=== PATIENT | female | born 1970 | race Hispanic/Latino ===

== ENCOUNTER 2017-10-01 02:34 | Observation (INO) | payer OTHER ==
[~2017-10-01] VITALS: Ht 157.5 cm; Wt 69.9 kg
[2017-10-01] MEDS ORDERED: ONDANSETRON HCL 4 MG/2 ML VIAL ONE (02:56)
[2017-10-01] MEDS ORDERED: FAMOTIDINE/PF 20 MG/2 ML VIAL IV ONE (02:57)
[2017-10-01 03:01] LABS: BASOPHILS % (AUTO) 0.4 % (0.0-5.0); EOSINOPHILS % (AUTO) 1.9 % (0.0-8.0); HEMATOCRIT 37.7 % (36-48); LYMPHOCYTES % (AUTO) 26.3 % (21.0-51.0); MEAN CORPUSCULAR HEMOGLOBIN 30.2 pg (27.0-33.0); MEAN CORPUSCULAR VOLUME 88.8 fL (79-99); MONOCYTES % (AUTO) 7.5 % (3.0-13.0); NEUTROPHILS % (AUTO) 63.9 % (40.0-77.0); NUCLEATED RED BLOOD CELLS 0.1 % (0.0-0.19); PLATELET COUNT (AUTO) 218 K/uL (130-400); RED BLOOD CELL COUNT(AUTO) 4.25 MIL/uL (4.00-5.50); RED CELL DISTRIBUTION WIDTH 14.7 % (11.0-15.5); WHITE BLOOD COUNT (AUTO) 9.5 K/uL (4.8-10.8)
[2017-10-01 03:14] LABS: CARBON DIOXIDE 32 mmol/L (21-32); CHLORIDE 104 mmol/L (101-111); CREATININE 0.8 mg/dL (0.5-1.5); GLOMERULAR FILTR. RATE CALC 81 mL/min (>60); GLUCOSE,RANDOM 118 mg/dL (70-105); POTASSIUM 3.4 mmol/L (3.5-5.1); SODIUM SERUM 142 mmol/L (136-145); UREA NITROGEN, BLOOD 11 mg/dL (7-18)
[2017-10-01 03:27] LABS: ALANINE AMINOTRANSFERASE 15 U/L (12-78); ALBUMIN 3.4 g/dL (3.5-5.0); ASPARTATE AMINOTRANSFERASE 13 U/L (10-37); BILIRUBIN,TOTAL 0.3 mg/dL (0.2-1.0); CREATINE KINASE MB < 0.5 ng/mL (0.5-3.6); CREATINE KINASE, TOTAL 30 U/L (21-232); LIPASE 94 U/L (114-286); TOTAL PROTEIN, SERUM 7.1 g/dL (6.0-8.3)
[2017-10-01] MEDS ORDERED: ASPIRIN 81MG TAB.CHEW ONE (04:59)
[2017-10-01] MEDS ORDERED: NITROGLYCERIN 1GM/1 INCH PACKET TD ONE (05:00)
[2017-10-01 06:30] VITALS: BP 150/76
[2017-10-01] MEDS ORDERED: NITROGLYCERIN 0.4 MG SL TAB SL PRN (06:30)
[2017-10-01] MEDS ORDERED: POTASSIUM CHLORIDE 20 MEQ ERTAB PO PRN (06:30)
[2017-10-01] MEDS ORDERED: POTASSIUM CHLORIDE 10% ELIXIR 20 MEQ/15 ML UDCUP PO PRN (06:30)
[2017-10-01] MEDS ORDERED: POTASSIUM CHLORIDE 20MEQ/100ML 100 ML IV PRN (06:30)
[2017-10-01] MEDS ORDERED: ACETAMINOPHEN 325 MG TAB PO PRN ×2 (06:30)
[2017-10-01] MEDS: NITROGLYCERIN 1GM/1 INCH PACKET TD SCH ×3 (06:30→23:16)
[2017-10-01] MEDS ORDERED: LACTULOSE 20 GM/30 ML UDCUP PO PRN (06:30)
[2017-10-01] MEDS ORDERED: ONDANSETRON HCL 4 MG/2 ML VIAL IV PRN (06:30)
[2017-10-01] MEDS ORDERED: LIDOCAINE HCL-MPF 1% 2ML VIAL IVP PRN (06:30)
[2017-10-01] MEDS ORDERED: HYDRALAZINE HCL 20 MG/ML VIAL IV PRN (06:30)
[2017-10-01] MEDS: INSULIN HUMULIN R 100 UNIT/ML 3ML SQ SCH ×4 (07:30→21:00)
[2017-10-01 07:47] VITALS: BP 128/72
[2017-10-01] MEDS: ASPIRIN 325 MG TABLET PO SCH (08:21)
[2017-10-01] MEDS: PANTOPRAZOLE SODIUM 40 MG TABLET.DR PO SCH (08:23)
[2017-10-01] MEDS: METOPROLOL TARTRATE 25 MG TAB PO SCH ×2 (08:23→20:22)
[2017-10-01] MEDS: ENOXAPARIN SODIUM 40 MG/0.4 ML SYRINGE SQ SCH (08:25)
[2017-10-01 09:31] LABS: CREATINE KINASE MB < 0.5 ng/mL (0.5-3.6); CREATINE KINASE, TOTAL 32 U/L (21-232); MYOGLOBIN 25 ng/mL (10-92); TROPONIN I 0.14 ng/mL (0.00-0.06)
[2017-10-01] MEDS ORDERED: METF500T6 PO (09:46)
[2017-10-01 11:11] VITALS: BP 131/75
[2017-10-01 15:25] LABS: CREATINE KINASE MB < 0.5 ng/mL (0.5-3.6); CREATINE KINASE, TOTAL 28 U/L (21-232); MYOGLOBIN 21 ng/mL (10-92); TROPONIN I 0.09 ng/mL (0.00-0.06)
[2017-10-01 16:06] VITALS: BP 117/55
[2017-10-01] MEDS: METFORMIN HCL 500 MG TABLET PO SCH (17:00)
[2017-10-01 19:35] VITALS: BP 124/76
[2017-10-01 23:58] VITALS: BP 125/77
[2017-10-02 04:40] VITALS: BP 126/64
[2017-10-02] MEDS: INSULIN HUMULIN R 100 UNIT/ML 3ML SQ SCH ×2 (06:00→11:30)
[2017-10-02 07:46] VITALS: BP 117/60
[2017-10-02 11:37] VITALS: BP 114/69
[2017-10-02] MEDS: NITROGLYCERIN 1GM/1 INCH PACKET TD SCH (14:04)
[2017-10-02] MEDS ORDERED: ASPI-1012 PO (14:11)
[2017-10-02] MEDS ORDERED: NITR0.4T50 SL (14:13)
[2017-10-02] MEDS ORDERED: METO25TA6 PO (14:13)
[2017-10-02] MEDS: METOPROLOL TARTRATE 25 MG TAB PO SCH (14:52)
[2017-10-02] MEDS: PANTOPRAZOLE SODIUM 40 MG TABLET.DR PO SCH (14:52)
[2017-10-02] MEDS: ASPIRIN 325 MG TABLET PO SCH (14:52)
[2017-10-02] MEDS: METFORMIN HCL 500 MG TABLET PO SCH (14:52)
[2017-10-02] MEDS: ENOXAPARIN SODIUM 40 MG/0.4 ML SYRINGE SQ SCH (14:53)
== END 2017-10-02 16:15 | disposition home or self-care (01) ==
LOC: EDH 02:34 → EDHIP 02:35 → 2AH 06:19
PROVIDERS: ADMIT Family Medicine; ATTEND Family Medicine
DX: R07.89 Other chest pain (principal); E11.9 Type 2 diabetes mellitus without complications; E87.6 Hypokalemia; Z79.82 Long term (current) use of aspirin
CPT/HCPCS: 36415; 71046; 76705; 80053; 82550 ×3; 82553 ×3; 82948 ×6; 83690; 83874 ×2; 84484 ×4; 85025; 85378; 93005 ×4; 96372; 99285; G0378 ×38; J1650; J2405; J3490

== ENCOUNTER → 2017-10-03 | Outpatient (CLI) | payer OTHER ==
[~2017-10-03] MED LIST: ASPI-1012 PO; METF500T6 PO; METO25TA6 PO; NITR0.4T50 SL
== END ==
LOC: OIH 13:35
PROVIDERS: ATTEND Internal Medicine Cardiovascular Disease
DX: Z13.6 Encounter for screening for cardiovascular disorders (principal)
CPT/HCPCS: 75571

== ENCOUNTER 2024-03-01 18:20 | Inpatient (IN) | payer BC, OTHER ==
[~2024-03-01] VITALS: Ht 157.5 cm; Wt 85.3 kg
[~2024-03-01 18:20] MED LIST changes: +METF-444 PO; -METF500T6 PO
[2024-03-01 18:46] LABS: BASOPHILS # (AUTO) 0.04 K/uL (0.00-0.20); BASOPHILS % (AUTO) 0.4 % (0.0-5.0); EOSINOPHILS # (AUTO) 0.15 K/uL (0.00-0.70); EOSINOPHILS % (AUTO) 1.5 % (0.0-8.0); HEMATOCRIT 40.5 % (36-48); IMMATURE GRANULOCYTE ABSOLUTE 0.03 K/uL (0-1); LYMPHOCYTES # (AUTO) 3.1 K/uL (1.0-4.8); LYMPHOCYTES % (AUTO) 30.3 % (21.0-51.0); MEAN CORPUSCULAR HEMOGLOBIN 30.6 pg (27.0-33.0); MEAN CORPUSCULAR HGB CONC 33.6 g/dL (32.0-36.0); MONOCYTES # (AUTO) 0.6 K/uL (0.1-1.0); MONOCYTES % (AUTO) 6.2 % (3.0-13.0); NEUTROPHILS # (AUTO) 6.3 K/uL (1.8-7.7); NEUTROPHILS % (AUTO) 61.3 % (40.0-77.0); PLATELET COUNT (AUTO) 256 K/uL (130-400); RED BLOOD CELL COUNT(AUTO) 4.45 MIL/uL (4.00-5.50); RED CELL DISTRIBUTION WIDTH 13.8 % (11.0-15.5); WHITE BLOOD COUNT (AUTO) 10.3 K/uL (4.8-10.8)
[2024-03-01 18:48] LABS: APPEARANCE,URINE CLEAR (CLEAR); BILIRUBIN,URINE NEGATIVE (NEGATIVE); COLOR,URINE LIGHT-YELLOW (YELLOW); GLUCOSE, URINE (UA) NEGATIVE (NEGATIVE); KETONES,URINE NEGATIVE (NEGATIVE); LEUKOCYTE ESTERASE ,URINE NEGATIVE Leu/uL (NEGATIVE); NITRATE,URINE NEGATIVE (NEGATIVE); PH,URINE 5.5 (5.0-8.0); PROTEIN,URINE NEGATIVE (NEGATIVE); UROBILINOGEN,URINE 0.2 mg/dL (0.2-1.0)
[2024-03-01 18:49] LABS: ADD UA MICROSCOPIC YES
[2024-03-01 18:50] LABS: MUCUS,URINE RARE LPF (None Seen); SQUAMOUS EPITHELIAL CELL,UR FEW /HPF (0-2); WBC,URINE 0-1 /HPF (0-1)
[2024-03-01 18:58] LABS: POTASSIUM 3.3 mmol/L (3.5-5.1)
[2024-03-01 19:02] LABS: ALBUMIN 3.6 g/dL (3.5-5.0); BILIRUBIN,TOTAL 0.3 mg/dL (0.2-1.0); TOTAL PROTEIN, SERUM 7.5 g/dL (6.0-8.3)
[2024-03-01] MEDS: MAG/ALUM/SIMETH 30 ML UDCUP PO ONE (20:35)
[2024-03-01] MEDS: PANTOPRAZOLE 40 MG/VIAL IVP ONE (20:35)
[2024-03-01] MEDS: LIDOCAINE HCL 2% VISCOUS 15 ML UDCUP PO ONE (20:36)
[2024-03-01] MEDS: ASPIRIN 325MG TAB PO ONE (21:21)
[2024-03-01] MEDS: NITROGLYCERIN 0.4 MG SL TAB SL PRN (22:05)
[2024-03-01] MEDS: HEPARIN 5,000 UNIT VIAL IV PRN (22:57)
[2024-03-01] MEDS: HEPARIN 25,000 UNITS/250ML D5W 250 ML IV SCH (22:58)
[2024-03-01] MEDS ORDERED: DEXTROSE 50%-WATER 50 ML DISP.SYRIN IV PRN (23:00)
[2024-03-01] MEDS ORDERED: MAGNESIUM 2GM PREMIX 50ML 50 ML IV PRN (23:00)
[2024-03-01] MEDS ORDERED: POTASSIUM CHLORIDE 10% ELIXIR 20 MEQ/15 ML UDCUP PO PRN (23:00)
[2024-03-01] MEDS ORDERED: ACETAMINOPHEN 325 MG TAB PO PRN (23:00)
[2024-03-01] MEDS ORDERED: GLUCAGON 1MG KIT 1 MG ML IM PRN (23:00)
[2024-03-01] MEDS ORDERED: KCL 20 MEQ ERTAB PO PRN (23:00)
[2024-03-01] MEDS ORDERED: POTASSIUM CHLORIDE 20MEQ/100ML 100 ML IV PRN ×2 (23:00)
[2024-03-01] MEDS: 0.9%NACL 1000ML 1,000 ML IV SCH (23:24)
[2024-03-01] MEDS: NITROGLYCERIN 1GM OINT 1 INCH/1GM TD SCH (23:25)
[2024-03-01] MEDS ORDERED: HYDRALAZINE 20MG/ML VIAL IV PRN (23:30)
[2024-03-02] VITALS (8 sets, daily range): BP systolic 118–140; BP diastolic 63–78; PULSE 54–83; RESP 16–20; O2SAT 95–96
[2024-03-02] MEDS ORDERED: LISI1TAB51 PO (01:04)
[2024-03-02 05:51] LABS: INR 1.03 (0.85-1.15); PROTHROMBIN TIME 11.1 SEC (9.6-11.6)
[2024-03-02 06:12] LABS: THYROID STIMULATING HORMONE 1.86 uIU/mL (0.36-3.74)
[2024-03-02 06:22] LABS: PARTIAL THROMBOPLASTIN TIME > 139.0 SEC (26.3-35.5)
[2024-03-02 06:34] LABS: HEMOGLOBIN A1C 5.9 % (4.0-6.0)
[2024-03-02] MEDS: MORPHINE 2 MG SYG IV PRN (06:35)
[2024-03-02] MEDS: INSULIN HUMULIN R 100 UNIT/ML 3ML SQ SCH (06:58)
[2024-03-02] MEDS: ASPIRIN 81 MG EC TAB PO SCH (08:31)
[2024-03-02] MEDS: FAMOTIDINE 20MG VIAL IV SCH (08:41)
[2024-03-02] MEDS: ONDANSETRON 4MG INJ IV PRN (10:29)
[2024-03-02 19:21] LABS: INR 1.05 (0.85-1.15); PROTHROMBIN TIME 11.3 SEC (9.6-11.6)
[2024-03-02] MEDS: ATORVASTATIN 20 MG TABLET PO SCH (19:34)
[2024-03-02 19:41] LABS: PARTIAL THROMBOPLASTIN TIME 104.5 SEC (26.3-35.5)
[2024-03-03] VITALS (16 sets, daily range): BP systolic 123–160; BP diastolic 57–80; PULSE 58–75; RESP 17–20; O2SAT 96
[2024-03-03 05:10] LABS: BASOPHILS # (AUTO) 0.03 K/uL (0.00-0.20); BASOPHILS % (AUTO) 0.3 % (0.0-5.0); EOSINOPHILS # (AUTO) 0.05 K/uL (0.00-0.70); EOSINOPHILS % (AUTO) 0.5 % (0.0-8.0); HEMATOCRIT 39.1 % (36-48); IMMATURE GRANULOCYTE ABSOLUTE 0.03 K/uL (0-1); LYMPHOCYTES # (AUTO) 2.6 K/uL (1.0-4.8); LYMPHOCYTES % (AUTO) 26.2 % (21.0-51.0); MEAN CORPUSCULAR HEMOGLOBIN 30.2 pg (27.0-33.0); MEAN CORPUSCULAR HGB CONC 32.5 g/dL (32.0-36.0); MEAN CORPUSCULAR VOLUME 93.1 fL (79-99); MONOCYTES # (AUTO) 0.6 K/uL (0.1-1.0); MONOCYTES % (AUTO) 6.3 % (3.0-13.0); NEUTROPHILS # (AUTO) 6.7 K/uL (1.8-7.7); NEUTROPHILS % (AUTO) 66.4 % (40.0-77.0); PLATELET COUNT (AUTO) 234 K/uL (130-400); RED CELL DISTRIBUTION WIDTH 13.8 % (11.0-15.5); WHITE BLOOD COUNT (AUTO) 10.1 K/uL (4.8-10.8)
[2024-03-03 05:29] LABS: INR 1.01 (0.85-1.15); PROTHROMBIN TIME 10.9 SEC (9.6-11.6)
[2024-03-03 05:30] LABS: BILIRUBIN,TOTAL 0.4 mg/dL (0.2-1.0); CREATININE 0.8 mg/dL (0.5-1.0); MAGNESIUM 1.8 mg/dL (1.80-2.40); POTASSIUM 3.4 mmol/L (3.5-5.1); TOTAL PROTEIN, SERUM 6.7 g/dL (6.0-8.3)
[2024-03-03] MEDS ORDERED: LIDOCAINE HCL 400MG/20ML VIAL ONE (12:41)
[2024-03-03] MEDS ORDERED: HEPARIN 10,000 UNIT/10ML (1,000 UNIT/ML) VIAL ONE (12:42)
[2024-03-03] MEDS ORDERED: NITROGLYCERIN 50MG VIAL ONE (12:42)
[2024-03-03] MEDS ORDERED: IOHEXOL 350 MG/ML 100ML INFUS..BTL IV ONE (12:42)
[2024-03-03] MEDS ORDERED: MIDAZOLAM HCL 1 MG/ML 2ML VIAL ONE (12:57)
[2024-03-03] MEDS ORDERED: FENTANYL CITRATE PF 50 MCG/1 ML 2ML VIAL ONE (12:57)
[2024-03-03] MEDS ORDERED: VERAPAMIL HCL 2.5 MG/ML VIAL ONE (12:58)
[2024-03-03] MEDS ORDERED: IOHEXOL-350 50ML VIAL IV ONE (13:39)
[2024-03-03] MEDS: 0.9%NACL 1000ML 1,000 ML IV SCH (14:57)
[2024-03-04] VITALS: BP 133/58; PULSE 80; RESP 19
[2024-03-04 04:00] VITALS: BP 112/66; PULSE 65; RESP 19
[2024-03-04 08:00] VITALS: O2SAT 96
[2024-03-04 08:05] VITALS: BP 133/78; PULSE 76; RESP 16
[2024-03-04] MEDS: LISINOPRIL 10 MG TABLET PO SCH (08:56)
[2024-03-04] MEDS: CLOPIDOGREL 75MG TAB PO SCH (08:57)
[2024-03-04] MEDS: ISOSORBIDE MONO 60MG SR TAB PO SCH (08:57)
[2024-03-04] MEDS: ACETAMINOPHEN 325 MG TAB PO PRN (09:12)
[2024-03-04] MEDS ORDERED: AEC81 PO (09:23)
[2024-03-04] MEDS ORDERED: Nitroglycerin 0.4MG Sl Tab SL (09:23)
[2024-03-04] MEDS ORDERED: ATOR20TA65 PO (09:23)
[2024-03-04] MEDS ORDERED: LISI10TA24 PO (09:27)
[2024-03-04] MEDS ORDERED: CLOP-31 PO (09:27)
== END 2024-03-04 11:30 | disposition home or self-care (01) | DRG 282 ==
LOC: EDH 18:20 → EDHIP 22:39 → 4AH 03-02 01:10 → 4CH 03-02 23:52
PROVIDERS: ADMIT Internal Medicine; ATTEND Internal Medicine
PROC: 4A023N7 Measurement of Cardiac Sampling and Pressure, Left Heart, Percutaneous Approach (ICD-10-PCS; principal; 2024-03-03)
PROC: B2111ZZ Fluoroscopy of Multiple Coronary Arteries using Low Osmolar Contrast (ICD-10-PCS; 2024-03-03)
PROC: B2151ZZ Fluoroscopy of Left Heart using Low Osmolar Contrast (ICD-10-PCS; 2024-03-03)
PROC: B41F1ZZ Fluoroscopy of Right Lower Extremity Arteries using Low Osmolar Contrast (ICD-10-PCS; 2024-03-03)
DX: I24.9 Acute ischemic heart disease, unspecified (principal); I21.A1 Myocardial infarction type 2; E11.65 Type 2 diabetes mellitus with hyperglycemia; E87.6 Hypokalemia; I10 Essential (primary) hypertension; E78.5 Hyperlipidemia, unspecified; E66.01 Morbid (severe) obesity due to excess calories; J45.909 Unspecified asthma, uncomplicated; Z68.34 Body mass index [BMI] 34.0-34.9, adult; Z79.899 Other long term (current) drug therapy; Z82.49 Family history of ischemic heart disease and other diseases of the circulatory system; Z98.891 History of uterine scar from previous surgery
CPT/HCPCS: 36415; 71045; 76376; 80053; 80061; 81001; 82550; 82948; 83036; 83735; 84443; 84484; 85025; 85610; 85651; 85730; 86140; 93005; 93306; 93356; 93458; 96374; 99156; 99157; C1760; C1769; C1894; G0378; J1644; J2250; J2270; J2405; J2470; J3010; J3490; J7030; Q9967; A4649; Q9965

== ENCOUNTER 2024-09-28 02:06 | Emergency (ER) | payer BC ==
[~2024-09-28] VITALS: Ht 157.5 cm; Wt 90.7 kg
[~2024-09-28 02:06] MED LIST changes: +AEC81 PO; -ASPI-1012 PO; +ATOR20TA65 PO; +CLOP-31 PO; +LISI10TA24 PO; -METF-444 PO; -METO25TA6 PO; -NITR0.4T50 SL; +Nitroglycerin 0.4MG Sl Tab SL
--- NOTE | 2024-09-28 02:29 | ERN ---
General Chief Complaint: Ringing in Ears Stated Complaint: C/O DIZZINESS, NAUSEA, RINGING TO LEFT EAR Time Seen by MD: 02:10 History of Present Illness Initial Comments Patient comes in with complaints of nausea and vomiting as well as feeling a bit dizzy and having some ringing in her left ear and buzzing. From 4:00 p.m. patient started getting nauseous and has thrown up about 4-5 times. No diarr hea. She also started having some nasal congestion and a runny nose today. He started also developing a bit of buzzing in her left ear. This is never happened before. No sick contacts. Comes in for evaluation. Allergies: Coded Allergies: No Known Drug Allergies (Verified Allergy, Unknown, 10/01/17) Home Meds Active Scripts Lisinopril (Lisinopril) 10 Mg Tablet, 10 MG PO DAILY for 30 Days, #30 TAB 0 Refills Prov:FLORENCE VAZQUEZ NP 03/04/24 Clopidogrel Bisulfate (Plavix) 75 Mg Tablet, 75 MG PO DAILY for 30 Days, #30 TAB 0 Refills Prov:FLORENCE VAZQUEZ NP 03/04/24 [Nitroglycerin 0.4MG Sl Tab] 0.4 MG TAB.SUBL No Conflict Check, 0.4 MG SL AD PRN for CHEST PAIN for 30 Days, #30 MG 0 Refills Prov:FLORENCE VAZQUEZ NP 03/04/24 Atorvastatin Calcium (Atorvastatin Calcium) 20 Mg Tablet, 20 MG PO HS for 30 Days, #30 TAB Prov:FLORENCE VAZQUEZ NP 03/04/24 Aspirin (ASPIRIN 81 MG ECTAB) 81 Mg Ectab, 81 MG PO DAILY for 30 Days, #30 TAB.EC Prov:FLORENCE VAZQUEZ NP 03/04/24 Past Medical History Past Medical History: Hypertension Past Surgical History: Unknown ROS Dictation Ten systems reviewed and negative except as noted in HPI Physical Exam Physical Exam Dictation GEN: non toxic, NAD HEENT: atrumatic, PERRL, EOMI, conjunctivae normal. TMs unremarkable bilateral ly. No effusion. No erythema. No nystagmus on movement of eyes. NECK: Soft supple nontender Heart RRR, no murmurs Chest: No deformity Lungs: Lungs clear to auscultation Ab: Soft nondistended nontender Back: No midline step-offs. No gross deformity. No CVA tenderness : m/s: Moving all four extremities. No gross deformity Neuro: CN 2-12 intact. Moving all four extremities. No ataxia with [id number]. Psych: Cooperative Results Laboratory and Microbiology Lab and Micro Result Laboratory Tests Test 09/28/24 02:37 Influenza Type A Antigen Negative For Type A Influenza Type B Antigen Negative For Type B SARS-CoV-2, RNA, NAAT NEGATIVE SARS CoV-2 MDM Patient reports developing some nasal congestion and runny nose today. Also started having multiple episodes of emesis. Likely viral. We will do COVID and influenza swab here. Zofran and symptomatic treatment. TMs otherwise unremarkable. Swabs negative. This maybe viral. Discharged on Zofran. Continue supportive care. Patient complain of some muffled decreased hearing out of the left although intact his sounds. As stated TM looks unremarkable. I do not appreciate any effusion. TM is intact. If symptoms continue or worsen and do not improve follow up with primary care physician. This was discussed with the patient and family. ED Course Orders Procedure Category Date Status Time Covid Rna Naat LAB 09/28/24 Complete 02:26 Influenza Type A & B, LAB 09/28/24 Complete Rapid 02:26 Ondansetron Odt 4mg PHA 09/28/24 Complete Tab (Zofran 4mg Odt) 02:30 Current Medications Medications (Trade) Dose Ordered Sig/Camilla Route PRN Reason Start Time Stop Time Status Last Admin Dose Admin Ondansetron HCl (zoFRAN 4MG ODT) 4 mg ONCE ONCE SL 09/28/24 02:30 09/28/24 02:31 DC 09/28/24 02:42 Vital Signs Date Time Temp Pulse Resp B/P (MAP) Pulse Ox O2 Delivery O2 Flow Rate FiO2 09/28/24 02:36 97.9 84 18 133/67 97 Room Air* 0 21 09/28/24 02:08 97.9 84 20 133/67 97 Room Air DX & DISP Disposition: Discharge Departure Impression: Primary Impression: Vomiting Additional Impression: Tinnitus Condition: Stable Scripts Ondansetron (Ondansetron Odt) 4 Mg Tab.rapdis 1 TAB PO Q6HPRN PRN for nausea/vomiting for 4 Days, #16 TAB 0 Refills Prov: ALEKSANDRA NEW MD 2/18/25 Additional Instructions: Zofran as needed for nausea and vomiting Follow up with primary care physician if symptoms persist or worsen. Referrals: BERNARD ARROYO MD (PCP) ALEKSANDRA NEW MD Sep 28, 2024 02:29
[2024-09-28 02:36] VITALS: BP 133/67; PULSE 84; RESP 18; TEMP 97.8; O2SAT 97
[2024-09-28] MEDS: ondanSETRON ODT 4MG TAB SL ONE (02:42)
[2024-09-28 03:09] LABS: INFLUENZA TYPE A Negative For Type A (NEGATIVE); INFLUENZA TYPE B Negative For Type B (NEGATIVE)
[2024-09-28 03:41] LABS: SARS-CoV-2, RNA, NAAT NEGATIVE SARS CoV-2 (NEGATIVE)
[2024-09-28] MEDS ORDERED: ONDA-243 PO (03:56)
== END 2024-09-28 04:38 | disposition home or self-care (01) ==
LOC: EDH 02:06
DX: R11.0 Nausea (principal); H93.12 Tinnitus, left ear; I10 Essential (primary) hypertension; Z79.02 Long term (current) use of antithrombotics/antiplatelets; Z79.82 Long term (current) use of aspirin; Z79.899 Other long term (current) drug therapy
CPT/HCPCS: 87635; 87804; 99283